=== PATIENT | male | born 1955 | race Caucasian/White ===

== ENCOUNTER 2023-11-14 07:47 | Day surgery (SDC) | payer OTHER ==
[~2023-11-14] VITALS: Ht 175.3 cm; Wt 87.5 kg
[~2023-11-14 07:47] MED LIST: ALLOPURINOL PO; ASPIRIN PO; COREG; DIGOXIN; ENALAPRIL PO; GEMFIBROZIL PO; MULT-1184 PO; VITAMIN B12 PO; VITAMIN D PO
[2023-11-14] MEDS ORDERED: fentaNYL citrate 0.05 MG/ML VIAL ONE (10:30)
[2023-11-14] MEDS ORDERED: LIDOCAINE 2% 100 MG/5 ML UJET TP ONE (10:30)
[2023-11-14] MEDS ORDERED: fentaNYL citrate 0.05 MG/ML VIAL IVP ONE (14:05)
== END 2023-11-14 11:45 | disposition home or self-care (01) ==
LOC: MOR 07:47 → MMU 07:48 → MOR 11:40
PROVIDERS: ATTEND Internal Medicine Gastroenterology
DX: Z12.11 Encounter for screening for malignant neoplasm of colon (principal); K63.5 Polyp of colon; K57.30 Diverticulosis of large intestine without perforation or abscess without bleeding; M19.90 Unspecified osteoarthritis, unspecified site; K75.81 Nonalcoholic steatohepatitis (NASH); I11.0 Hypertensive heart disease with heart failure; I50.9 Heart failure, unspecified; E78.5 Hyperlipidemia, unspecified; Z79.899 Other long term (current) drug therapy
CPT/HCPCS: 45385; J3010